=== PATIENT | male | born 1945 | race Caucasian/White ===

== ENCOUNTER 2024-07-21 08:02 | Emergency (ER) | payer OTHER, MEDICARE ==
[~2024-07-21] VITALS: Ht 170.2 cm; Wt 96.6 kg
--- NOTE | 2024-07-21 08:39 | ERN ---
General Chief Complaint: Congestion Stated Complaint: CONGESTION Time Seen by MD: 08:04 Source: patient History of Present Illness Initial Comments Patient is a 79-year-old male coming in to be evaluated for cough and congestion. Patient states that he has been having a cough for three days. He feels as if he has been having fever but has been quantified it. Allergies: Coded Allergies: Wacnpum-WNQ-UhG Reductase Inhibitor (Unverified Allergy, Unknown, 07/21/24) Sulfa (Sulfonamide Antibiotics) (Unverified Allergy, Unknown, 07/21/24) Past Medical History Past Medical History: High Cholesterol, Hypertension Past Surgical History: Other Surgical History Other: TRIPLE BYPASS ROS Dictation CONSTITUTIONAL: No chills, no fever, no weakness, no diaphoresis, no malaise. HEAD/FACE: No signs of trauma. EENT: No eye pain, no blurred vision, no tearing, no double vision, no ear ria n, no ear discharge, no nose pain, no nasal congestion, no throat pain, no throat swelling, no mouth pain. RESPIRATORY: cough, no orthopnea, no SOB, no stridor, no wheezing. CARDIOVASCULAR: No chest pain, no edema, no palpitations, no syncope. GASTROINTESTINAL/ABDOMINAL: No abdominal pain, no constipation, no diarrhea, no nausea, no vomiting. GENITOURINARY: No abnormal discharge, no dysuria, no frequent urination, no hematuria. No complaints of pain in the genitals. MUSCULOSKELETAL: No back pain, no gout, no joint pain, no joint swelling, no muscle pain, no muscle stiffness, no neck pain. INTEGUMENTARY: No change in color, no change in hair/nails, no dryness, no lesion, no lumps, no rash. NEUROLOGICAL/PSYCH: No anxiety, not depressed, no emotional problem, no headache, no numbness, no pre-existing deficit, no history of seizures, no tremors, no weakness. HEMATOLOGIC/LYMPHATIC: Not anemic, no history of blood clots, no apparent bleeding, no bruising, glands not swollen. All Systems Negative, Except as Noted. Physical Exam Physical Exam Dictation VITAL SIGNS: Reviewed. GENERAL APPEARANCE: Alert, oriented x3, no acute distress, obese. HEAD AND FACE: Non-traumatic. EYES: PERRL, pink conjunctivas, eyelid no trauma, anterior chamber clear. EARS: Pinnas intact and no signs of trauma or erythema. Ear canals clear and no discharge. TMs no erythema. NOSE: No discharge, no bleeding. OROPHARYNX: Mouth normal, teeth no caries, tongue pink. Pharynx clear, no er ythema. Tonsils no exudates, no abscesses noted. Mucous membrane moist. NECK: Supple, non-tender, no thyromegaly, no masses, no JVD, no bruits. BREAST: Deferred. CHEST: No tenderness, no crepitus, no paradoxical movement, no retractions. LUNGS: Clear, well-ventilated, symmetric, no rales, no wheezing, no rhonchi, no stridor, good breath sounds bilaterally. HEART: Regular rate, regular rhythm, no murmur, no gallops. VASCULAR: No peripheral edema. ABDOMEN: Soft, positive bowel sounds, nondistended, no guarding, nontender, no rebound, no masses no hepatomegaly, no splenomegaly, no Fox's sign, no hernias. RECTAL: Deferred. GENITAL: Deferred. NEUROLOGICAL: Normal speech, gross motor function intact, gross sensory function intact. MUSCULOSKELETAL: Neck nontender, full range of motion, back nontender, full range of motion. EXTREMITIES: Nontender, full range of motion. SKIN: Color pink, dry, no turgor, no rash, no lacerations, no abrasions, no contusions. LYMPHATICS: Deferred. Results Laboratory and Microbiology Lab and Micro Result Laboratory Tests Test 07/21/24 08:11 Influenza Type A Antigen Negative For Type A Influenza Type B Antigen Negative For Type B SARS-CoV-2, RNA, NAAT NEGATIVE SARS CoV-2 Group A Streptococcus Rapid negative (NEGATIVE) Labs Reviewed?: Yes EKG/XRAY/US/CT/MRI EKG Comment 07/21/2024 TIME 8:32 A.M. VENTRICULAR RATE 84 SINUS RHYTHM [place] [address] WAVE ELEVATION OR DEPRESSION SECOND EKG 07/21/2024 TIME 10:45 A.M. VENTRICULAR RATE 87 SINUS RHYTHM [place] [address] WAVE ELEVATION OR DEPRESSION X-RAY Comment [place] [address] [place] [address] IMAGING REPORT Signed PATIENT: MARY HIGH MR#: [id number] : 1945 SEX: M AGE: 79 LOCATION: [facility] ORDER 6 STATUS: REG ER REPORT#: [id number] SERVICE 5 REASON: CONGESTION ORDERING PHYSICIAN: EAN IRVING MD PROCEDURE: CXR1VW - CHEST 1VW PORTABLE CHEST RADIOGRAPH INDICATION: CONGESTION COMPARISON: None FINDINGS: Median sternotomy wires are in appropriate alignment. Heart size is normal. Mild calcific plaque is present along the aortic arch sharma. The pulmonary vascularity and lizet appear normal. No abnormal pulmonary parenchymal opacity or consolidation identified. No significant pleural effusion noted. No pneumothorax detected. IMPRESSION: No radiographic evidence for any acute cardiopulmonary process. DICTATED BY: ASHIA ALEGRE MD DATE: 07/21/24901 ELECTRONICALLY SIGNED BY: ASHIA ALEGRE MD DATE: 07/21/24909 [facility] MDM: DIFFERENTIAL DIAGNOSIS: SINUSITIS, URI, COVID, FLU PATIENT IS A 79-YEAR-OLD GENTLEMAN COMING IN TO BE EVALUATED FOR COUGH. PATIENT HE WAS HAS A COUGH FOR THREE DAYS IN HIS HERE FOR FURTHER EVALUATION. ON PHYSICAL EXAM BILATERAL NASAL TURBINATE SWELLING SINUS PRESSURE BILATERAL TYMPANIC MEMBRANE CONGESTION. PATIENT WAS DISCHARGED IN STABLE CONDITION WITH DIAGNOSIS SINUSITIS ED Course Orders Procedure Category Date Status Time Covid Rna Naat LAB 07/21/24 Complete 08:25 Influenza Type A & B, LAB 07/21/24 Complete Rapid 08:25 Rapid (Group A Strep) LAB 07/21/24 Complete 08:25 12 Lead Ekg Tracing- EKG 07/21/24 Logged Technical 08:25 Chest 1vw RAD 07/21/24 Resulted 08:26 Acetaminophen 500mg PHA 07/21/24 Complete Tab (Tylenol 500mg T 10:30 Ibuprofen (Motrin) PHA 07/21/24 Complete 10:30 Dexamethasone 4mg/Ml PHA 07/21/24 Complete 1ml Vial (Dexametha 10:30 Current Medications Medications (Trade) Dose Ordered Sig/Martha Route PRN Reason Start Time Stop Time Status Last Admin Dose Admin Acetaminophen (TYLenol 500MG TAB) 500 mg ONCE ONCE PO 07/21/24 10:30 07/21/24 10:31 DC 07/21/24 10:11 Dexamethasone Sodium Phosphate (dexaMETHasone 4MG/ML 1ML VIAL) 4 mg ONCE ONCE IM 07/21/24 10:30 07/21/24 10:31 DC 07/21/24 10:11 Ibuprofen (moTRIN) 400 mg ONCE ONCE PO 07/21/24 10:30 07/21/24 10:31 DC 07/21/24 10:11 Vital Signs Date Time Temp Pulse Resp B/P (MAP) Pulse Ox O2 Delivery O2 Flow Rate FiO2 07/21/24 10:11 100.0 07/21/24 10:11 100.0 07/21/24 08:03 100.0 84 16 168/79 92 Room Air 0 07/21/24 08:03 100.0 84 16 168/79 98 Room Air* 0 21 DX & DISP Disposition: Discharge Departure Impression: Primary Impression: Sinusitis Condition: Stable Scripts Loratadine (Loratadine) 10 Mg Tablet 1 TAB PO DAILY for allergy symptoms for 30 Days, #30 TAB 0 Refills Prov: EAN IRVING MD 07/21/24 Fluticasone Propionate (Flonase Nasal [place]) 50 Mcg/Actuation [place] 2 SPRAY NS DAILY, #16 GM 0 Refills Prov: EAN IRVING MD 07/21/24 Amoxicillin (Amoxicillin) 500 Mg Capsule 1 CAP PO TID for 10 Days, #30 CAP 0 Refills Prov: EAN IRVING MD 07/21/24 Additional Instructions: FOLLOW-UP WITH PRIMARY CARE PROVIDER IN 1 TO 2 DAYS. TAKE MEDICATIONS DIRECTED HERE IN THE EMERGENCY ROOM. OKAY TO CONTINUE HOME MEDICATIONS UNLESS OTHERWISE DISCUSSED DURING YOUR VISIT IN THE EMERGENCY ROOM TODAY. RETURN TO YOUR NEAREST EMERGENCY ROOM IF SYMPTOMS WORSEN OR IF THERE IS NO IMPROVEMENT. CALL 911 IF YOU NEED IMMEDIATE ASSISTANCE. TAKE TYLENOL ASQV-LHB-ELEGADU NEEDED AND IF NO CONTRAINDICATIONS ARE PRESENT. INCREASE ORAL HYDRATION. A WOUND CULTURE OR URINE CULTURE WAS ORDERED HERE IN THE EMERGENCY ROOM DEPARTMENT PLEASE FOLLOW-UP WITH PRIMARY CARE PROVIDER AND ADVISE THEM TO GET REPEAT PORTS FROM OUR FACILITY. IF YOU HAD ANY SALINA WRAP/SPLINTS THAT WERE APPLIED HERE, PLEASE DO NOT REMOVE THEM UNTIL YOU SEE YOUR PRIMARY CARE OR SPECIALTY. REFERRALS: Referrals: NONE (PCP) MERI WOODS MD Time of Disposition: 10:50 EAN IRVING MD Jul 21, 2024 08:39
[2024-07-21 08:57] LABS: SARS-CoV-2, RNA, NAAT NEGATIVE SARS CoV-2 (NEGATIVE)
[2024-07-21 09:05] LABS: INFLUENZA TYPE A Negative For Type A (NEGATIVE); INFLUENZA TYPE B Negative For Type B (NEGATIVE)
--- NOTE | 2024-07-21 09:10 | HMCIMG ---
PORTABLE CHEST RADIOGRAPH INDICATION: CONGESTION COMPARISON: None FINDINGS: Median sternotomy wires are in appropriate alignment. Heart size is normal. Mild calcific plaque is present along the aortic arch sharma. The pulmonary vascularity and lizet appear normal. No abnormal pulmonary parenchymal opacity or consolidation identified. No significant pleural effusion noted. No pneumothorax detected. IMPRESSION: No radiographic evidence for any acute cardiopulmonary process.
[2024-07-21 09:19] LABS: RAPID GROUP A STREP negative (NEGATIVE)
[2024-07-21] MEDS: acetaMINOPHEN 500 MG TABLET PO ONE (10:11)
[2024-07-21] MEDS: dexaMETHasone SOD PHOSPHATE 4 MG/ML 1ML VIAL IM ONE (10:11)
[2024-07-21] MEDS: ibuPROFEN 400 MG TABLET PO ONE (10:11)
[2024-07-21 10:48] VITALS: BP 133/64; PULSE 85; RESP 16; TEMP 100; O2SAT 95
--- NOTE | 2024-07-21 10:49 | NUR ---
AT THIS TIME THE PATIENT STATES LEFT SIDE CHEST DISCOMFORT IS 0/10 NUMERIC PAIN SCALE. ALSO STATES HEADACHE IS SUBSIDING.
[2024-07-21] MEDS ORDERED: FLUT16H NS (10:51)
[2024-07-21] MEDS ORDERED: LORA10TA7 PO (10:51)
[2024-07-21] MEDS ORDERED: AMOX500C2 PO (10:51)
[2024-07-21 10:52] VITALS: TEMP 100
--- NOTE | 2024-07-21 11:13 | EKG ---
[facility] Test Date: 2024-07-21 Test Time: 10:45:04 Pat Name: MARY HIGH Department: ED Room: Gender: M Agency Service Coordinator: [id number] : 1945 Requested By: EAN IRVING Order Number: [id number] Reading MD: Prince Rosa Measurements Intervals [place] Rate: 87 P: 63 MT: 150 QRS: -59 QRSD: 97 T: 39 QT: 360 QTc: 434 Interpretive Statements Sinus rhythm Inferior infarct, old No previous ECG available for comparison Electronically Signed On 07-21-2024 14:57:43 CDT by Prince Rosa Please click the below link to view image of tracing.
--- NOTE | 2024-07-21 12:32 | EKG ---
[facility] Test Date: 2024-07-21 Test Time: 08:32:46 Pat Name: MARY HIGH Department: ED Room: Gender: M Instrumental Teacher: [id number] : 1945 Requested By: EAN IRVING Order Number: [id number] Reading MD: Prince Rosa Measurements Intervals [place] Rate: 84 P: 66 CT: 154 QRS: -61 QRSD: 96 T: 42 QT: 350 QTc: 415 Interpretive Statements Sinus rhythm Supraventricular bigeminy Inferior infarct, old No previous ECG available for comparison Electronically Signed On 07-21-2024 14:57:34 CDT by Prince Rosa Please click the below link to view image of tracing.
== END 2024-07-21 10:58 | disposition home or self-care (01) ==
LOC: EDH 08:02
DX: J32.9 Chronic sinusitis, unspecified (principal); E78.00 Pure hypercholesterolemia, unspecified; I10 Essential (primary) hypertension; Z88.2 Allergy status to sulfonamides; Z88.8 Allergy status to other drugs, medicaments and biological substances; Z20.822 Contact with and (suspected) exposure to COVID-19
CPT/HCPCS: 99285; 71045; 87635; 87880; 87804 ×2; 96372; 93005 ×2; J1100